=== PATIENT | female | born 1945 | race Caucasian/White ===

== ENCOUNTER 2017-10-18 20:38 | Emergency (ER) | payer MEDICARE ==
[2017-10-18] MEDS ORDERED: Dexamethasone 10 MG/ML VIAL ONE (20:52)
[2017-10-18] MEDS ORDERED: diphenhydrAMINE 50 MG/ML VIAL ONE (20:52)
== END 2017-10-18 21:29 | disposition home or self-care (01) ==
LOC: SCSER 20:38
DX: T78.40XA Allergy, unspecified, initial encounter (principal); Z87.891 Personal history of nicotine dependence; Z79.899 Other long term (current) drug therapy
CPT/HCPCS: 96372; J1100; J1200